=== PATIENT | female | born 1995 | race Caucasian/White ===

== ENCOUNTER 2021-08-07 15:47 | Emergency (ER) | payer OTHER, SELFPAY ==
[2021-08-07 15:58] VITALS: BP 124/78; PULSE 79; RESP 12; TEMP 36.6; O2SAT 100
--- NOTE | 2021-08-07 16:25 | ED.GENADULT ---
HPI - General Adult General Chief complaint: Upper Respiratory Infection Stated complaint: SINUS CONGESTION/RUNNY NOSE/COUGH Source: patient Mode of arrival: ambulatory Limitations: no limitations History of Present Illness HPI narrative: Patient presents for evaluation of upper respiratory symptoms since of this past week. Symptoms including sinus congestion, rhinorrhea, sore throat, nonproductive cough and feeling clammy . No fever, chills, nausea, vomiting. No recent sick contacts to her knowledge. No personal hx of COVID. She has received COVID vaccination. She does not smoke. She has been taking dayquil and nyquil. Symptoms were initially improving with medication, however medications have lost efficacy. She had similar symptoms about one month ago. She was concerned about symptom recurrence so she came in for further evaluation. Related Data Home Medications Medication Instructions Recorded Confirmed levonorgestrel [Kyleena] INTRAUTERINE 08/07/21 Allergies Allergy/AdvReac Type Severity Reaction Status Date / Time No Known Allergies Allergy Verified 08/07/21 15:55 Review of Systems Review of Systems: CONSTITUTIONAL: Reports feeling clammy . Denies fever, chills, or sweats. EYES: Denies visual changes, redness, or discharge. ENT: Reports sinus congestion, sore throat and rhinorrhea CARDIOVASCULAR: Denies chest pain, palpitations, or edema. RESPIRATORY: Reports cough GASTROINTESTINAL: Denies abdominal pain, nausea, vomiting, or diarrhea. GENITOURINARY: Denies dysuria or hematuria. SKIN: Denies rash or itching. MUSCULOSKELETAL: Denies back pain, joint pain, or myalgia. NEUROLOGIC: Denies headache, numbness, dizziness, or weakness. PSYCHIATRIC: Denies anxiety or depression. [facility] Past Medical History Medical History (Updated 08/07/21 @ 16:53 by ELOY Saba, DOMENIC) No pertinent past medical history Surgical History Surgical History No pertinent past surgical history Family History Family History Mother Family history non-contributory Social History Social History (Updated 08/07/21 @ 16:30 by ELOY Saba, DOMENIC) Smoking status: Never smoker Alcohol intake: never Substance use: never Living arrangements: with family Gender identity (if verbalized by the patient): Female Sexual Orientation (if Verbalized by the Patient): Straight or Heterosexual Spiritual care concerns: No Exam Narrative: GENERAL: Well-appearing, well-nourished, and in no acute distress. HEAD: Normocephalic, atraumatic. EYES: PERRLA and EOMI. ENT: Nares clear, no rhinorrhea or epistaxis. Mucous membranes moist. Mild bilateral tonsillar swelling with associated erythema. No exudate. Uvula is midline. Bilateral TMs pearly silva nonbulging NECK: Supple. No adenopathy or masses. No carotid bruits or JVD CHEST: Clear to auscultation. No respiratory distress. No wheezes rales or rhonchi HEART: Regular rate and rhythm. No murmur heard. Normal peripheral pulses. ABDOMEN: Soft, nontender, nondistended, normal active bowel sounds. EXTREMITIES: Normal range of motion. No edema. SKIN: Warm, dry, no rash. NEURO: No focal deficits. Alert and oriented x3. PSYCH: Normal mood and affect. Course Course Emergency Course: This is a 26-year-old female who present with complaints of upper respiratory symptoms. Influenza, strep were negative. COVID was positive. Advised on supportive care. She is not hypoxic. Quarantine and alignment with CDC recommendations. Follow-up with primary provider and go to the ER for any shortness of breath or decline in condition. Level of Care: Express Care Visit Vital Signs Vital signs: Vital Signs Temperature 36.6 C 08/07/21 15:58 Pulse Rate 79 08/07/21 15:58 Respiratory Rate 12 08/07/21 15:58 Blood Pressure 124/78 08/07/21 15:58
== END 2021-08-07 16:57 | disposition home or self-care (01) ==
PROVIDERS: Emergency Provider Nurse Practitioner
DX: U07.1 COVID-19 (principal)
CPT/HCPCS: 87081; 87426; 87804; 87880; 99213; C9803; G0463